=== PATIENT | female | born 2000 | race Caucasian/White ===

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

== ENCOUNTER 2021-04-19 07:34 | Outpatient (CLI) | payer BC ==
[2021-04-19 15:09] LABS: BASOPHILS # (AUTO) 0.1 10^3/uL (0.0-0.1); BASOPHILS % (AUTO) 0.7 %; EOSINOPHILS # (AUTO) 0.1 10^3/uL (0.0-0.7); EOSINOPHILS % (AUTO) 1.2 %; HCT - HEMATOCRIT 39.7 % (37.0-47.0); HGB - HEMOGLOBIN 13.3 g/dL (12.0-16.0); LYMPHOCYTES # (AUTO) 2.8 10^3/uL (1.5-3.5); LYMPHOCYTES % (AUTO) 41.8 %; MEAN CORPUSCULAR HEMOGLOBIN 29.3 pg (27.0-31.0); MEAN CORPUSCULAR HGB CONC 33.5 g/dL (32.0-36.0); MEAN CORPUSCULAR VOLUME 87.4 fL (81.0-99.0); MEAN PLATELET VOLUME 11.2 fL (7.9-10.8); MONOCYTES # (AUTO) 0.5 10^3/uL (0.0-1.0); NEUTROPHILS # (AUTO) 3.3 10^3/uL (1.5-6.6); PLT - PLATELET COUNT 190 10^3/uL (130-450); RED BLOOD COUNT 4.54 10^6/uL (4.20-5.40); WHITE BLOOD COUNT 6.7 x10^3/uL (4.8-10.8)
[2021-04-19 15:45] LABS: ALBUMIN 3.7 g/dL (3.2-5.5); ALBUMIN/GLOBULIN RATIO 1.2 (1.0-2.2); BILIRUBIN,TOTAL 0.5 mg/dL (0.2-1.0); CREATININE 0.8 mg/dL (0.4-1.0); TOTAL PROTEIN 6.7 g/dL (6.7-8.2)
[2021-04-19 15:55] LABS: THYROID STIMULATING HORMONE 5.37 uIU/mL (0.34-5.60)
[2021-04-19 15:57] LABS: FREE T3 3.98 pg/mL (2.5-3.9)
[2021-04-19 15:58] LABS: FREE T4 (FREE THYROXINE) 0.93 ng/dL (0.58-1.64)
[2021-04-19 16:02] LABS: FERRITIN 13.4 ng/mL (11.0-306.8)
== END 2021-04-19 07:35 | disposition home or self-care (01) ==
LOC: LAB.S 07:34
PROVIDERS: ATTEND Naturopath
DX: R45.4 Irritability and anger (principal); N94.4 Primary dysmenorrhea; Z30.09 Encounter for other general counseling and advice on contraception; R20.9 Unspecified disturbances of skin sensation; E55.9 Vitamin D deficiency, unspecified; E61.1 Iron deficiency
CPT/HCPCS: 36415; 80053; 82306; 82728; 83540; 84439; 84443; 84466; 84480; 84481; 84482; 85025

== ENCOUNTER 2021-08-06 12:45 | Outpatient (CLI) | payer BC ==
[2021-08-06 20:06] LABS: BASOPHILS # (AUTO) 0.1 10^3/uL (0.0-0.1); BASOPHILS % (AUTO) 0.9 %; EOSINOPHILS # (AUTO) 0.1 10^3/uL (0.0-0.7); EOSINOPHILS % (AUTO) 1.6 %; HCT - HEMATOCRIT 41.2 % (37.0-47.0); HGB - HEMOGLOBIN 13.9 g/dL (12.0-16.0); LYMPHOCYTES # (AUTO) 2.5 10^3/uL (1.5-3.5); LYMPHOCYTES % (AUTO) 35.9 %; MEAN CORPUSCULAR HEMOGLOBIN 29.8 pg (27.0-31.0); MEAN CORPUSCULAR HGB CONC 33.7 g/dL (32.0-36.0); MEAN CORPUSCULAR VOLUME 88.4 fL (81.0-99.0); MEAN PLATELET VOLUME 11.1 fL (7.9-10.8); MONOCYTES # (AUTO) 0.7 10^3/uL (0.0-1.0); MONOCYTES % (AUTO) 9.6 %; NEUTROPHILS # (AUTO) 3.7 10^3/uL (1.5-6.6); NEUTROPHILS % (AUTO) 51.9 %; PLT - PLATELET COUNT 240 10^3/uL (130-450); RED BLOOD COUNT 4.66 10^6/uL (4.20-5.40); RED CELL DISTRIBUTION WIDTH 12.7 % (12.0-15.0); WHITE BLOOD COUNT 7.1 x10^3/uL (4.8-10.8)
[2021-08-06 20:35] LABS: % IRON SATURATION 36 % (20-50); IRON 177 ug/dL (28-170); TOTAL IRON BINDING CAPACITY 490 ug/dL (250-450); TRANSFERRIN 350 mg/dL (192-382)
[2021-08-06 20:36] LABS: THYROID STIMULATING HORMONE 2.88 uIU/mL (0.34-5.60)
[2021-08-06 20:37] LABS: FREE T3 3.69 pg/mL (2.5-3.9)
[2021-08-06 20:38] LABS: FREE T4 (FREE THYROXINE) 0.8 ng/dL (0.58-1.64)
[2021-08-06 20:42] LABS: FERRITIN 19.5 ng/mL (11.0-306.8)
== END 2021-08-06 12:46 | disposition home or self-care (01) ==
LOC: LAB.S 12:45
PROVIDERS: ATTEND Naturopath
DX: E61.1 Iron deficiency (principal); R53.83 Other fatigue; R94.6 Abnormal results of thyroid function studies; E03.9 Hypothyroidism, unspecified; L65.9 Nonscarring hair loss, unspecified
CPT/HCPCS: 36415; 82728; 83540; 84439; 84443; 84466; 84480; 84481; 84482; 85025

== ENCOUNTER 2022-09-28 21:53 | Emergency (ER) | payer BC ==
[2022-09-28 22:27] LABS: BILIRUBIN,URINE NEGATIVE (NEGATIVE); CLARITY,URINE HAZY (CLEAR); GLUCOSE, URINE (UA) NEGATIVE (NEGATIVE); KETONES,URINE (UA) NEGATIVE (NEGATIVE); NITRITE,URINE NEGATIVE (NEGATIVE); OCCULT BLOOD,URINE MODERATE (NEGATIVE); PROTEIN,URINE TRACE mg/dL (NEGATIVE); UROBILINOGEN,URINE 0.2 (NORMAL) E.U./dL (NORMAL)
[2022-09-28 22:28] LABS: HCG UR QUAL NEGATIVE
[2022-09-28 22:30] LABS: LEUKOCYTE ESTERASE, URINE SMALL (NEGATIVE)
[2022-09-28 22:42] LABS: BACTERIA,URINE Few /HPF (None Seen); SQUAMOUS EPITHELIAL CELL,UR RARE Squamous (<= Few); WBC,URINE >25 /HPF (0-5)
[2022-09-28] MEDS ORDERED: LIDOCAINE 1% 2 ML VIAL MC ONE (23:08)
[2022-09-28] MEDS ORDERED: cefTRIAXone 1 GM VIAL IM STA (23:08)
--- NOTE | 2022-09-28 23:14 | ED Physician Documentation ---
History of Present Illness - Stated complaint Stated Complaint: BACK PX - Chief complaint Chief Complaint: Back Pain - History obtained from History obtained from: Patient, Family (mother) - Additonal information Additional information: 22yF previously healthy p/w suprapubic pain radiating to BL flank X 2 days, gradual onset, aching/pressure like, progressively worsening and a/w fever/chills and temp 100. denies nausea, diarrhea, hematuria. not currently menstruating PD PAST MEDICAL HISTORY - Present Medications Home Medications: Ambulatory Orders Medication Instructions Recorded Confirmed Cefpodoxime Proxetil [Vantin] 100 mg PO Q12H #20 tablet 09/28/22 - Allergies Allergies/Adverse Reactions: Allergies Allergy/AdvReac Type Severity Reaction Status Date / Time No Known Drug Allergies Allergy Verified 09/28/22 22:06 PD ED PE NORMAL - Vitals Vital signs reviewed: Yes - General General: Alert and oriented X 3, No acute distress, Well developed/nourished - HEENT HEENT: Atraumatic, PERRL, EOMI - Neck Neck: Supple, no meningeal sign - Abdomen Abdomen: Non tender, Non distended, Other (suprapubic discomfort to palpation) - Back Back: Other (BL CVA ttp) - Derm Derm: Normal color, Warm and dry Results - Vitals Vitals: Vital Signs - 24 hr 09/28/22 22:04 Temperature 37.1 C Heart Rate 131 H Respiratory 16 Rate Blood Pressure 124/72 O2 Saturation 98 Oxygen O2 Source Room air - Labs Labs: Laboratory Tests 09/28/22 09/28/22 22:14 22:14 Urine Color YELLOW Urine Clarity HAZY Urine pH 8.0 H Ur Specific Mamou 1.015 Urine Protein TRACE Urine Glucose (UA) NEGATIVE Urine Ketones NEGATIVE Urine Occult Blood MODERATE H Urine Nitrite NEGATIVE Urine Bilirubin NEGATIVE Urine Urobilinogen 0.2 (NORMAL) Ur Leukocyte Esterase SMALL H Urine RBC 6-10 H Urine WBC >25 H Ur Squamous Epith Cells RARE Squamous Urine Bacteria Few Ur Microscopic Review INDICATED Urine Culture Comments INDICATED Urine HCG, Qual NEGATIVE PD Medical Decision Making - ED course ED course: 22yF p/w dysuria and back pain, likely pyelonephritis given u/a positive for leukocyte esterase. also with blood on u/a but patient is not displaying classic s/s of kidney stones and is without significant pain c/w stones. antibiotics provided and return precautions given. plan to f/u with pcp this week. Departure - Departure Disposition: 01 Home, Self Care Clinical Impression: Pyelonephritis Condition: Stable Instructions: Pyelonephritis Dc Prescriptions: Cefpodoxime Proxetil [Vantin] 100 mg PO Q12H #20 tablet Comments: You are seen in the emergency department for urinary tract infection that has turned into pyelonephritis. Paper presciption was printed for you. Please take your antibiotics as prescribed and follow-up with your primary care provider this week. Return to the emergency department if you are still having fever after 24 to 48 hours, if you have new or worsening symptoms or you have other concerns.
[2022-09-28 23:48] VITALS: BP 121/68
== END 2022-09-28 23:42 | disposition home or self-care (01) ==
LOC: ED 21:53
DX: N12 Tubulo-interstitial nephritis, not specified as acute or chronic (principal)
CPT/HCPCS: 81001; 81003; 81025; 87086; 96372; 99283

== ENCOUNTER 2023-05-05 08:13 | Outpatient (CLI) | payer BC ==
[2023-05-05 14:35] LABS: BASOPHILS % (AUTO) 0.6 %; EOSINOPHILS # (AUTO) 0.1 10^3/uL (0.0-0.7); EOSINOPHILS % (AUTO) 1.4 %; HCT - HEMATOCRIT 43.3 % (37.0-47.0); HGB - HEMOGLOBIN 14.1 g/dL (12.0-16.0); LYMPHOCYTES # (AUTO) 2.5 10^3/uL (1.5-3.5); MEAN CORPUSCULAR HGB CONC 32.6 g/dL (32.0-36.0); MEAN CORPUSCULAR VOLUME 89.1 fL (81.0-99.0); MEAN PLATELET VOLUME 10.9 fL (7.9-10.8); MONOCYTES # (AUTO) 0.5 10^3/uL (0.0-1.0); MONOCYTES % (AUTO) 7.1 %; NEUTROPHILS # (AUTO) 3.5 10^3/uL (1.5-6.6); NEUTROPHILS % (AUTO) 52.6 %; PLT - PLATELET COUNT 229 10^3/uL (130-450); RED BLOOD COUNT 4.86 10^6/uL (4.20-5.40); RED CELL DISTRIBUTION WIDTH 12.2 % (12.0-15.0); WHITE BLOOD COUNT 6.6 x10^3/uL (4.8-10.8)
[2023-05-05 16:23] LABS: ALBUMIN 4.3 g/dL (3.2-5.5); ALBUMIN/GLOBULIN RATIO 1.5 (1.0-2.2); ALKALINE PHOSPHATASE 46 IU/L (42-121); ALT ALANINE AMINOTRANSFERASE 9 IU/L (10-60); AST ASPARTATE AMINOTRANSFERASE 13 IU/L (10-42); BILIRUBIN,TOTAL 0.5 mg/dL (0.2-1.0); BUN - BLOOD UREA NITROGEN 9 mg/dL (6-20); CALCIUM 9.8 mg/dL (8.5-10.3); CARBON DIOXIDE - CO2 27 mmol/L (21-32); CHLORIDE 106 mmol/L (101-111); CHOL/HDL RATIO 2.9 (<4.4); CHOLESTEROL 173 mg/dL; GFR - MDRD 69 (>89); GLUCOSE 86 mg/dL (74-104); HDL CHOLESTEROL 59 mg/dL; LDL CHOLESTEROL,CALCULATED 91 mg/dL; LDL/HDL RATIO 1.5 (<4.4); POTASSIUM 3.9 mmol/L (3.5-4.5); SODIUM 139 mmol/L (135-145); TOTAL PROTEIN 7.2 g/dL (6.4-8.9); TRIGLYCERIDES 115 mg/dL (48-352); VLDL CHOLESTEROL 23 mg/dL
[2023-05-05 16:48] LABS: THYROID STIMULATING HORMONE 3.06 uIU/mL (0.34-5.60)
[2023-05-05 17:15] LABS: FERRITIN 10.3 ng/mL (11.0-306.8)
== END 2023-05-05 08:14 | disposition home or self-care (01) ==
LOC: LAB.S 08:13
PROVIDERS: ATTEND Naturopath
DX: E61.1 Iron deficiency (principal); E03.9 Hypothyroidism, unspecified; R53.83 Other fatigue
CPT/HCPCS: 36415; 80053; 80061; 82306; 82626; 82728; 83721; 84439; 84443; 84481; 85025